=== PATIENT | male | born 1980 | race Caucasian/White ===

== ENCOUNTER 2021-06-10 21:20 | Emergency (ER) | payer OTHER | END 2021-06-11 01:13 | disposition home or self-care (01) | LOC: DL.ED 21:20 | DX: H66.92 Otitis media, unspecified, left ear (principal); H61.22 Impacted cerumen, left ear | CPT/HCPCS: 99282; 99283 ==

== ENCOUNTER 2022-08-12 23:26 | Emergency (ER) | payer BC, OTHER ==
[2022-08-12] MEDS ORDERED: Sodium Chloride 0.9% 1,000 ML IV ONE (23:44)
[2022-08-12] MEDS ORDERED: Iopamidol 612 MG/ML 100 ML Bottle IVPUSH ONE (23:44)
[2022-08-12] MEDS ORDERED: Ondansetron 4 MG/2 ML SDV IVPUSH ONE (23:45)
[2022-08-12] MEDS ORDERED: Ketorolac 30 MG/ML SDV IVPUSH ONE (23:45)
[2022-08-13 00:33] LABS: ANION GAP 15.7 mEq/L (7-13)
[2022-08-13 02:23] LABS: CORONAVIRUS COVID-19 NAA NEGATIVE (NEGATIVE)
== END 2022-08-13 02:50 ==
LOC: DL.ED 23:26
DX: K56.609 Unspecified intestinal obstruction, unspecified as to partial versus complete obstruction (principal); Z20.822 Contact with and (suspected) exposure to COVID-19
CPT/HCPCS: 0240U; 36415; 74018; 74177; 80053; 81001; 83690; 85025; 96361; 96374; 96375; 99284; 99285; J1885; J2405; J7030; Q9967

== ENCOUNTER 2024-07-20 20:13 | Emergency (ER) | payer BC | END 2024-07-20 22:37 | disposition home or self-care (01) | LOC: DL.ED 20:13 | DX: J10.1 Influenza due to other identified influenza virus with other respiratory manifestations (principal) | CPT/HCPCS: 87428-QW; 99283 ==